=== PATIENT | female | born 1975 | race Caucasian/White ===

== ENCOUNTER 2017-12-10 07:44 | Emergency (ER) | payer BC ==
[~2017-12-10] VITALS: Ht 167.6 cm; Wt 99.6 kg
[~2017-12-10 07:44] MED LIST: CEPACOL SORE TH1 LO4 MM; LAC PO; PROAIR HFA0.09 MG/A1 INH; ROBDML PO; TAM75 PO; TYL325 PO; WEL100 PO; ZITHROMAX Z-PA250 MG PO
[2017-12-10 10:19] VITALS: BP 110/70
== END 2017-12-10 12:30 | disposition home or self-care (01) ==
LOC: ED 07:44
DX: N72 Inflammatory disease of cervix uteri (principal); A63.8 Other specified predominantly sexually transmitted diseases; Z88.5 Allergy status to narcotic agent
CPT/HCPCS: 87491; 87591; J0696